=== PATIENT | female | born 1955 | race American Indian/Alaskan Native ===

== ENCOUNTER 2016-03-03 13:09 | Outpatient (CLI) | payer BC ==
--- NOTE | 2016-03-03 14:09 | XRay Report ---
Cervical spine: AP and lateral views demonstrates small anterior spurs at the inferior margins of C3 and C4 and a large spur at C5. The vertebral height, alignment and interspaces are preserved. The apophyseal joints appear intact. The bones are well-mineralized. No prevertebral swelling. Impressions: Spondylosis. No acute finding.
== END 2016-03-03 13:10 | disposition home or self-care (01) ==
LOC: SPVIMAG 13:09
DX: M47.892 Other spondylosis, cervical region (principal)
CPT/HCPCS: 72040